=== PATIENT | male | born 1975 | race Hispanic/Latino ===

== ENCOUNTER 2018-03-18 16:19 | Emergency (ER) | payer SELFPAY ==
[2018-03-18] MEDS ORDERED: Insulin Regular 300 UNITS/3 ML VIAL ONE (17:51)
== END 2018-03-18 19:49 | disposition home or self-care (01) ==
LOC: ERS 16:19
DX: E11.65 Type 2 diabetes mellitus with hyperglycemia (principal); F17.210 Nicotine dependence, cigarettes, uncomplicated; Z71.6 Tobacco abuse counseling
CPT/HCPCS: 36416; 96360; 96372; 99406; J1815

== ENCOUNTER 2018-09-20 17:08 | Inpatient (IN) | payer OTHER, SELFPAY ==
--- NOTE | 2018-09-20 17:30 | CT ---
CT HEAD NONCONTRAST: 09/20/2018 HISTORY: Left-sided numbness and vision loss. COMPARISON: None available. FINDINGS: There is no evidence of a hemorrhage, acute infarction, mass effect, or midline shift. The ventricul ar system is normal in size, shape, and position. The visualized paranasal sinuses and mastoid air c ells are clear. The calvarial structures are intact. IMPRESSION: No acute intracranial abnormality is demonstrated. The above findings were discussed with Dr. Nava in the emergency department on 09/20/2018 at 1720 hours. CODE CR POS: [facility]
[2018-09-20 17:34] LABS: #Basophils 0.1 thou/uL (0.0-0.2); #Eosinphils 0.1 thou/uL (0.0-0.7); #Lymphocytes 2.1 thou/uL (1.20-3.40); #Monocytes 0.4 thou/uL (0.11-0.59); #Neutrophils 4.2 thou/uL (1.40-6.50); %Basophils 1.4 % (0.0-1.0); %Eosinophils 0.8 % (0.0-10.0); %Lymphocytes 30.3 % (21.0-51.0); %Monocytes 5.6 % (0.0-10.0); Hemoglobin 16.3 g/dL (14.0-18.0); Mean Corpuscular HGB CONC 34.6 g/dL (32.0-36.0); Mean Corpuscular Hemoglobin 34.2 pg (27.0-31.0); Mean Platelet Volume 7.5 fL (7.4-10.4); Platelet Count 282 thou/uL (130-400); RBC Distribution Width 11.9 % (11.5-14.5); Red Blood Cell (RBC) Count 4.77 mill/uL (4.70-6.10); White Blood Cell (WBC) Count 6.8 thou/uL (4.8-10.8)
--- NOTE | 2018-09-20 17:52 | CT ---
CT ANGIOGRAM HEAD WITH IV CONTRAST AND 3D RECONSTRUCTIONS: CT ANGIOGRAM NECK WITH IV CONTRAST AND 3D RECONSTRUCTIONS: 09/20/2018 HISTORY: Three seizure episodes. Left-sided numbness and vision loss. COMPARISON: Noncontrast CT head on 09/20/2018. FINDINGS: There is a normal arrangement of the great vessels of the aortic arch, which are patent. The left gerardo bclavian artery is partially obscured due to dense contrast within the left subclavian vein, but the visualized left subclavian artery is patent. The right subclavian artery, innominate artery, and abner ateral common carotid arteries are patent. The bilateral internal and external carotid arteries are patent. The bilateral vertebral arteries a re codominant and patent. The basilar artery and posterior cerebral arteries are patent. The bilateral middle cerebral and anterior cerebral arteries are patent. No focal stenosis or branch occlusion is appreciated. No significant atherosclerotic plaque is seen within the bilateral internal carotid arteries or invol ving the minto of Loyd or vertebrobasilar system. No aneurysm is seen within the limitations of the technique of this examination. IMPRESSION: 1. Patent bilateral internal carotid arteries by NASCET criteria. 2. Patent bilateral vertebral arteries. 3. Patent minto of Loyd and vertebrobasilar system. No focal stenosis is appreciated. The above findings were discussed with Dr. Nava in the emergency department on 09/20/2018 at 1741 hours. CODE CR POS: [facility]
[2018-09-20 18:06] LABS: PTT 29.7 SEC (22.9-36.1)
[2018-09-20 18:07] LABS: INR-International Normal Ratio 1.1; Prothrombin Time 13.9 SEC (12.0-14.7)
[2018-09-20 18:12] LABS: Acetaminophen Less than 6.0 mcg/mL (10.0-30.0); Alcohol Less than 10 mg/dL (Less than 10); Magnesium 2.2 mg/dL (1.6-2.6); Salicylate Less than 8.0 mg/dL (15.0-30.0)
[2018-09-20 18:14] LABS: ALT (SGPT) 30 U/L (8-55); AST (SGOT) 23 U/L (5-34); Albumin 3.4 g/dL (3.5-5.0); Alkaline Phosphatase 109 U/L (40-150); Anion Gap 15 mmol/L (10-20); BUN (Urea Nitrogen) 13 mg/dL (8.9-20.6); Bilirubin, Total 0.7 mg/dL (0.2-1.2); CK (CPK) 51 U/L (30-200); Calc. Creatinine Clearance 0 mL/min (70-130); Calcium 9.1 mg/dL (7.8-10.44); Carbon Dioxide 23 mmol/L (22-29); Chloride 99 mmol/L (98-107); Estimated GFR-MDRD 88; Globulin 2.9 g/dL (2.4-3.5); Glucose 313 mg/dL (70-105); Potassium 4.3 mmol/L (3.5-5.1); Protein, Total 6.3 g/dL (6.0-8.3); Sodium 133 mmol/L (136-145)
[2018-09-20 18:16] LABS: CKMB 0.9 ng/mL (0-6.6); Troponin I Less than 0.010 ng/mL (< 0.028)
[2018-09-20] MEDS ORDERED: levETIRAcetam In NaCl (Iso-Os) 1,500 MG in Premix Bag 1 BAG IVPB SCH (18:45)
[2018-09-20] MEDS ORDERED: Dextrose 50% Abboject 50 ML SYRINGE SLOW IVP PRN (19:23)
[2018-09-20] MEDS ORDERED: Dextrose 5% in Water 1,000 ML IV PRN (19:23)
[2018-09-20 19:48] LABS: Bilirubin Negative (Negative); Blood, Urine Negative (Negative); Clarity CLEAR (Clear); Glucose, Urine (Dipstick) >=1000 mg/dL (Negative); Leukocyte Negative (Negative); Nitrite Negative (Negative); Protein, Urine (Dipstick) Negative (Neg-Trace); pH, Urine 6.5 (5.0-9.0)
[2018-09-20 19:53] LABS: Specific Gravity, Urine 1.056 (1.002-1.036)
[2018-09-20 20:01] LABS: Amphetamine Detected (NotDetected); Barbiturates Screen Not Detected (NotDetected); Benzodiazepine Screen Not Detected (NotDetected); Cocaine Metabolite Screen Not Detected (NotDetected); Medtox Control Line Valid? VALID (VALID); Medtox Reader # READER 1; Methadone Not Detected (NotDetected); Methamphetamine Detected (NotDetected); Opiate Screen Not Detected (NotDetected); Oxycodone Screen Not Detected (NotDetected); Phencyclidine (PCP) Not Detected (NotDetected); THC/Cannabinoid Screen Not Detected (NotDetected); Tricyclic Screen Not Detected (NotDetected)
[2018-09-20 20:55] LABS: Troponin I Less than 0.010 ng/mL (< 0.028)
[2018-09-20 22:01] VITALS: BMI 16.3
[2018-09-20] MEDS: Sodium Chloride 0.9% 1,000 ML IV SCH (23:00)
--- NOTE | 2018-09-21 00:34 | HP ---
CHIEF COMPLAINT: Left-sided weakness and seizure. HISTORY OF PRESENT ILLNESS: This patient is a 43-year-old male. The patient has history of diabetes mellitus, which is extremely poorly controlled. He reports his blood sugars often run in the 400 range. The patient is a [facility] inmate and the guard says that they had measured over 500 prior to transporting the patient here. The patient states that last night he had some numbness in his left upper extremity, but thought it would go away, so he went to bed. This morning, he awoke and he had worsening weakness and numbness on the left side of his body. He reports that he had a sensation of his left leg being asleep. He states he could not move his leg, but does state that he was able to get up on it and walk to the cafeteria area as long as he walks slowly and hold on to something. Throughout the day today, he did have some worsening of his speech. He subsequently had a witnessed seizure at the [facility]. The guards with him was one of the witnesses and reported it lasted for about 4 minutes. The patient's eyes rolled back into his head and he had some generalized tonic clonic movements. [facility], where he had a couple of smaller seizures lasting less than a minute. The patient has no history of seizure disorder. He denied any loss of bowel or bladder control. He did not have any injury to himself or tongue biting. He was apparently postictal up until the time he got to the emergency department. Currently, he reports he still has some weakness on his one side and some slurred speech. Apparently, his speech has improved significantly since the time of his arrival according to the nurse and the guard. REVIEW OF SYSTEMS: The patient reports he has had some alterations in his vision and taste sensations. He also reports he has had no bowel movement for a couple of days. He reports some mild back pain, urinary frequency. He does have polydipsia and generalized decreased weight, and he also reports that he has had some clear type penile discharge. PAST MEDICAL HISTORY: Diabetes mellitus, history of childhood asthma. PAST SURGICAL HISTORY: None. FAMILY HISTORY: Father of cancer. His mother is still alive and healthy. SOCIAL HISTORY: The patient reports smoking 4 cigarettes per day. He does smoke some marijuana. He says he tried methamphetamine once. He typically does drink a beer a day. He is . His would be his surrogate decision maker and he is full code. ALLERGIES: NONE. MEDICATIONS: Metformin 1000 mg p.o. b.i.d. PHYSICAL EXAMINATION: VITAL SIGNS: Temperature 98.6, pulse 77, respirations 18, O2 saturation 100% on room air, and blood pressure 103/84. GENERAL APPEARANCE: Age-appropriate male, very thin, in no distress. He is lying comfortably in gurney in the emergency department. HEENT: PERRL. No OP lesions. NECK: Supple and symmetric. No lymphadenopathy, JVD, or carotid bruits. HEART: Regular rate and rhythm. No murmurs, gallops, or rubs. LUNGS: Clear to auscultation bilaterally with good chest wall expansion and air exchange. ABDOMEN: Soft, nontender, and nondistended. Positive bowel sounds. No masses. No organomegaly. EXTREMITIES: Warm and dry with no cyanosis, clubbing, or edema. NEUROLOGIC: The patient is awake, alert, oriented, appropriate, cognitively intact. He does have some slurred speech. Cranial nerves II through XII appear to be grossly intact. He has 5/5 strength on the right, both upper and lower extremities. Examining his left side, the patient is being encouraged to squeeze my hand as hard as he could. He subsequently had a bit of emotional breakdown, started crying, saying that he was not going to let this thing beat him and then managed to have fairly normal strength when giving full effort in upper and lower extremities both proximally and distally. LABORATORY DATA: White count 6.8, hemoglobin 16.3, and platelets 282. Coags normal. Sodium 133, potassium 4.3, chloride 99, CO2 of 23, BUN 13, creatinine 0.94, glucose 313, and calcium 9.1. AST 23, ALT 30. Prolactin level is 2.57. Urinalysis greater than 1000 glucose. Urine drug screen positive for methamphetamine and amphetamine. Brain CT negative. CT angio negative. IMPRESSION AND PLAN: 1. Left hemiplegia. The patient's exam is unusual and he appears to be inconsistent with his history. He initially presents with substantial weakness on the left side, but can be coaxed to give better effort and appears to have generally normal strength at those times. It is unclear whether this truly represents a deficiency or not. His initial CT was negative. We will keep him in the hospital and obtain an MRI as well as a Neurology consult. Other etiologies represent possible functional hypoglycemia versus Paul's paralysis. His symptoms appeared to start before his initial witnessed seizure, but I suppose it is possible he could have had an unwitnessed seizure of a lesser degree. It is also possibly could be having some affects of intoxication. 2. Seizure. This could be representing new onset seizure with new onset cerebrovascular accident. Prolactin level is low. He is being loaded with Keppra and again, we will consult Stroke Team and have Neurology see the patient. 3. Diabetes mellitus, very poorly controlled. We will continue with the metformin, but provide sliding scale insulin as well. 4. Positive drug screen. If the patient is positive for amphetamine and methamphetamine, it certainly could be exacerbating his risk of stroke and seizure. Job ID: [id number]
[2018-09-21 00:43] LABS: #Basophils 0.1 thou/uL (0.0-0.2); #Eosinphils 0.1 thou/uL (0.0-0.7); #Monocytes 0.5 thou/uL (0.11-0.59); %Basophils 1.8 % (0.0-1.0); %Eosinophils 1.8 % (0.0-10.0); %Lymphocytes 30.2 % (21.0-51.0); %Neutrophils 59.2 % (42.0-75.0); Hemoglobin 14.2 g/dL (14.0-18.0); Mean Corpuscular HGB CONC 34.1 g/dL (32.0-36.0); Mean Corpuscular Hemoglobin 33.8 pg (27.0-31.0); Mean Corpuscular Volume 99.1 fL (78.0-98.0); Mean Platelet Volume 6.7 fL (7.4-10.4); Platelet Count 259 thou/uL (130-400); RBC Distribution Width 11.6 % (11.5-14.5); Red Blood Cell (RBC) Count 4.21 mill/uL (4.70-6.10); White Blood Cell (WBC) Count 6.8 thou/uL (4.8-10.8)
[2018-09-21 01:02] LABS: Troponin I Less than 0.010 ng/mL (< 0.028)
[2018-09-21 01:04] LABS: Anion Gap 14 mmol/L (10-20); BUN (Urea Nitrogen) 14 mg/dL (8.9-20.6); Calc. Creatinine Clearance 73 mL/min (70-130); Calcium 8.5 mg/dL (7.8-10.44); Carbon Dioxide 23 mmol/L (22-29); Chloride 98 mmol/L (98-107); Estimated GFR-MDRD Greater than 90; Glucose 411 mg/dL (70-105); Potassium 3.9 mmol/L (3.5-5.1); Sodium 131 mmol/L (136-145)
[2018-09-21] MEDS: HumaLOG 300 UNITS/3 ML VIAL SC PRN ×4 (07:16→21:11)
[2018-09-21] MEDS ORDERED: Lorazepam 2 MG/ML VIAL SLOW IVP PRN (07:50)
[2018-09-21] MEDS ORDERED: Diazepam 5 MG TAB PO PRN (07:51)
[2018-09-21] MEDS ORDERED: Thiamine HCl 200 MG/2 ML VIAL IM SCH (08:00)
[2018-09-21] MEDS ORDERED: Diazepam 5 MG TAB PO SCH (08:00)
[2018-09-21] MEDS ORDERED: Folic Acid 1 MG TAB PO SCH (08:00)
[2018-09-21] MEDS ORDERED: Multivit, Therapeutic 1 TAB PO SCH (08:00)
[2018-09-21] MEDS: levETIRAcetam 500 MG TAB PO SCH ×2 (09:20→21:11)
[2018-09-21] MEDS: Sodium Chloride 0.9% 1,000 ML IV SCH ×2 (09:33→21:10)
--- NOTE | 2018-09-21 13:24 | PDOC.PN ---
- Subjective Encounter Start Date: 09/21/18 Encounter Start Time: 11:10 Feeling improved. Still has some tingling on left side. Speech is improved. Swallowing normally. Reports some discomfort to the left hand (along 5th metacarpal area) - Objective Resuscitation Status - Order Detail: 09/20/18 19:26 Resuscitation Status Routine Resuscitation Status: FULL: Full Resuscitation Discussed with: Patient Vital Signs & Weight: Vital Signs (12 hours) Temp Pulse Pulse Pulse Resp BP BP 09/21/18 12:18 94/65 09/21/18 11:50 97.5 F L 76 18 09/21/18 08:41 80 86 93/66 09/21/18 08:20 09/21/18 07:36 98 F 80 16 09/21/18 03:09 98.5 F 72 BP BP Pulse Ox 09/21/18 12:18 09/21/18 11:50 94/65 98 09/21/18 08:41 92/70 09/21/18 08:20 100 09/21/18 07:36 98/72 100 09/21/18 03:09 103/72 99 Weight Weight 98 lb 3 oz I&O: 09/20/18 09/21/18 09/22/18 06:59 06:59 06:59 Intake Total 574 Output Total 500 Balance 74 Result Diagrams: 09/21/18 00:18 09/21/18 00:18 Additional Labs: Accuchecks 09/20/18 09/20/18 22:57 17:16 POC Glucose 204 H 301 H Phys Exam - Physical Examination Constitutional: NAD Respiratory: no wheezing, no rales, no rhonchi, clear to auscultation bilateral Cardiovascular: RRR, no significant murmur, no rub Gastrointestinal: soft, non-tender, no distention, positive bowel sounds Musculoskeletal: no edema No TTP of the left hand. Neurological: non-focal, normal sensation, moves all 4 limbs Still very slow to give full effort. Psychiatric: normal affect, A&O x 3 Dx/Plan (1) Left hemiplegia Code(s): G81.94 - HEMIPLEGIA, UNSPECIFIED AFFECTING LEFT NONDOMINANT SIDE Status: Acute (2) Seizure Code(s): R56.9 - UNSPECIFIED CONVULSIONS Status: Acute (3) Diabetes mellitus Code(s): E11.9 - TYPE 2 DIABETES MELLITUS WITHOUT COMPLICATIONS Status: Acute (4) Methamphetamine abuse Code(s): F15.10 - OTHER STIMULANT ABUSE, UNCOMPLICATED Status: Acute (5) Alcohol abuse Code(s): F10.10 - ALCOHOL ABUSE, UNCOMPLICATED Status: Acute - Plan * Patient's reported to nurse that the patient drinks much more than he will admit to. I asked again and he maintains that he only drinks one beer per day. Was started on withdrawal regiment by jace. Will continue the thiamine and folate. * States he used meth several weeks ago, but tested positive. Changed his story and says it was a few days ago. * Exam substantially improved. Basically normal when he gives full effort. * MRI, ECHO, Neuro consult pending. * Continue Keppra. * Blood sugars poorly controlled. Increase to moderate SSI.
[2018-09-21] MEDS ORDERED: Aspirin 81 mg Enteric Coated Tablet PO SCH (13:30)
--- NOTE | 2018-09-21 14:40 | CON ---
DATE OF CONSULTATION: 09/21/2018 TYPE OF CONSULTATION: Neurology consultation. CONSULTING PHYSICIAN: Hospitalist Service. IMPRESSION: 1. Seizure of new onset. 2. Left hemibody numbness suggestive of a small vessel stroke. 3. Diabetes. 4. Methamphetamine use. PLAN: 1. MRI of the brain to confirm whether there has been an ischemic event. 2. Continue Keppra 500 mg twice a day. 3. Blood sugar control. 4. Consider further stroke workup if this MRI is positive. HISTORY OF PRESENT ILLNESS: Mr. Herrera is a 43-year-old man, who reports having history of diabetes. He was placed in shelter on Thursday. He reports that was the last day he had any alcohol use. He admits that he would use some methamphetamine last week as well. He developed some numbness on the left side of the body three days ago. He did not report it at that time. He apparently had a seizure and was brought in for evaluation. He had a CT scan of the brain and CT angio, which did not reveal any acute changes or evidence of stenosis. His laboratory studies were notable for elevated glucoses in the 300 to 400 range. His drug screen was positive for methamphetamine. He has not had any further seizures. He reportedly had at least three events while he was in shelter. He denies any past history of seizure activity. PAST MEDICAL HISTORY: Diabetes. ALLERGIES: NONE. SOCIAL HISTORY: Positive for methamphetamine use and alcohol use. FAMILY HISTORY: Noncontributory. MEDICATION LIST: Metformin. REVIEW OF SYSTEMS: No complaint of headache, nausea, vomiting, vertigo, chest pain, shortness of breath. Positive for joint pain in his hands. PHYSICAL EXAMINATION: GENERAL: He is a thin, middle-aged man, in no acute distress. VITAL SIGNS: Blood pressure 92/70, pulse 86, and respirations 16. He is afebrile. HEENT: Pupils are equal and reactive. Conjunctiva clear. Oropharynx clear. NECK: Supple. No lymphadenopathy noted. EXTREMITIES: There are degenerative joint changes in the DIP and PIP joints of both hands. No cyanosis is noted. NEUROLOGIC: He was alert and cooperative. His speech is fluent and clear. Cranial nerve exam was only notable for subjective decreased sensation to touch on the left side of the face. Motor exam showed symmetric customer [employer] teammate strength without fix or drift. Cerebellar testing shows normal [id number] and rapid alternating movements. Sensation was subjectively decreased in the left arm and leg. Plantar responses were downgoing bilaterally. Gait was not tested. No abnormal movements were seen. SUMMARY: This is a 43-year-old man with poorly controlled diabetes and illicit drug use as well as alcohol use, who presents with left hemibody numbness and an acute seizure. Agree with continuing the Keppra and further stroke workup. Job ID: [id number]
[2018-09-21] MEDS ORDERED: Atorvastatin Calcium 40 MG TAB PO SCH (21:00)
[2018-09-22] MEDS ORDERED: Diazepam 5 MG TAB PO PRN (04:00)
[2018-09-22 05:31] LABS: Cardiac Risk 2.1 (Less than 4.5)
[2018-09-22 06:34] LABS: Glucose 382 mg/dL (70-105)
[2018-09-22] MEDS: HumaLOG 300 UNITS/3 ML VIAL SC PRN (06:40)
[2018-09-22] MEDS ORDERED: HumaLOG 300 UNITS/3 ML VIAL SC PRN (08:23)
[2018-09-22] MEDS ORDERED: Aspirin 81 mg Enteric Coated Tablet PO SCH (09:00)
[2018-09-22] MEDS ORDERED: Magnesium Oxide 400 MG TAB PO SCH (09:00)
[2018-09-22] MEDS ORDERED: Multivitamin W/ Minerals 1 TAB PO SCH (09:00)
[2018-09-22] MEDS ORDERED: Enoxaparin Sodium 40 MG/0.4 ML SYRINGE SC SCH (09:00)
[2018-09-22] MEDS ORDERED: Folic Acid 1 MG TAB PO SCH (09:00)
[2018-09-22] MEDS: levETIRAcetam 500 MG TAB PO SCH (09:45)
[2018-09-22] MEDS: Sodium Chloride 0.9% 1,000 ML IV SCH (09:47)
--- NOTE | 2018-09-22 10:53 | MRI ---
MRI BRAIN WITHOUT CONTRAST: Date: 09/22/18 HISTORY: Cerebrovascular accident. COMPARISON: CT brain dated 09/20/18. FINDINGS: On the diffusion weighted imaging sequence, there are no foci of diffusion restricted to suggest acut e infarction. There is some artifact along the anterior mulu. No abnormal low signal on the ADC map. On the susceptibility weighted imaging sequence, there are no abnormal foci of hemorrhage. The curyung of Loyd flow-voids are maintained. No midline shift. No mass effect. Marrow signal is normal on the sagittal and T1 image. Corpus callosum is normal. IMPRESSION: No acute intracranial abnormality. POS: [facility]
[2018-09-22 15:55] VITALS: BP 90/65; TEMP 98.7
--- NOTE | 2018-09-23 12:02 | DIS ---
DATE OF ADMISSION: 09/20/2018 DATE OF DISCHARGE: 09/22/2018 DISCHARGE DIAGNOSES: 1. Left hemiplegia, resolved. 2. Left-sided paresthesias, resolved. 3. Seizure. 4. Diabetes mellitus. 5. Methamphetamine abuse. 6. Possible alcohol abuse. HISTORY OF PRESENT ILLNESS: This patient is a 43-year-old male, who was a [facility] halfway inmate, when he presented to the emergency department. The patient reported that he had some tingling in his left upper extremity the evening before, and on the day of admission, had experienced weakness and numbness and tingling over the left side of his body as well as some speech difficulties. The patient was apparently witnessed to have a grand mal seizure with tonic-clonic activities with no loss of bowel or bladder function. No self harm. The patient was taken to the [facility] where he apparently had a couple more small seizures and then he was transported to the hospital. In the hospital, the patient continued to have some left-sided weakness, although his speech was clearing. His head CT was negative. His lab workup was primarily notable for positive drug screen for methamphetamines. The patient reported that he only drink 1 or 2 beers per day. During the initial exam, the patient was able to muster fairly normal strength when he was giving full effort on his left side. His speech apparently improved dramatically during his time in the emergency department. HOSPITAL COURSE: The patient was admitted. He was loaded with Keppra and continued on Keppra dosing. He had an MRI of the brain and echocardiogram, both of which were essentially normal. He had a consultation by Neurology as well. He had Physical Therapy get the patient up and walk him. He also was noted to have severely out of control blood sugars and his treatment was changed to sliding scale insulin regimen until we did get some control over his blood sugars. Because the patient was non-resourced, he was referred to the [facility] program where he can get some help with his medications and supplies. Once the patient was essentially back to his normal regimen and his workup had been essentially unremarkable, he was felt to be stable for discharge to home. Of note, the patient's did talk to the nurses and indicate that the patient drank much more than he admitted to, although the patient himself stuck to the 1 to 2 beers per day. The patient's was concerned that the patient might have had some type of alcohol withdrawal seizure when he was in the [facility] halfway, although there was nothing to ultimately substantiate that. PHYSICAL EXAMINATION: VITAL SIGNS: On the day of discharge, temperature is 98.7, pulse 81, BP 99/70, respirations 16, O2 saturation 97% on room air. GENERAL: The patient was awake, alert, oriented, pleasant, and cooperative. His speech appeared to be back to his baseline. HEART: Regular rate and rhythm without murmurs. LUNGS: Clear bilaterally. ABDOMEN: Soft, nontender, and nondistended. EXTREMITIES: Warm and dry. NEUROLOGICAL: The patient appeared to have 5/5 strength. DISPOSITION: The patient is discharged to home. DIET: He is to be on a diabetic diet. ACTIVITIES: His activity is as tolerated. MEDICATIONS: He will be on, 1. Aspirin 81 mg daily. 2. Atorvastatin 40 mg at bedtime. 3. Insulin 70/30, 30 units in the a.m. and 15 units in p.m. 4. Keppra 500 mg b.i.d. 5. Metformin 1000 mg b.i.d. FOLLOWUP: He is to establish with a PCP and follow up with the hospital should he have any problems prior to that time. Job ID: [id number]
== END 2018-09-22 17:29 | disposition home or self-care (01) | DRG 101 ==
LOC: ERS 17:08 → EDBD 17:08 → 2SE 18:49
PROVIDERS: ADMIT Internal Medicine; ATTEND Internal Medicine
DX: R56.9 Unspecified convulsions (principal); G81.94 Hemiplegia, unspecified affecting left nondominant side; E11.65 Type 2 diabetes mellitus with hyperglycemia; R20.2 Paresthesia of skin; F15.10 Other stimulant abuse, uncomplicated; F10.10 Alcohol abuse, uncomplicated; F17.210 Nicotine dependence, cigarettes, uncomplicated; Z79.84 Long term (current) use of oral hypoglycemic drugs
CPT/HCPCS: 36415; 36416; 70450; 70496; 70498; 70551; 80048; 80053; 80061; 80306; 80307; 81003; 82550; 82553; 82947; 83735; 84146; 84484; 85025; 85610; 85730; 86850; 86900; 86901; 90471; 90686; 93005; 93306; 94760; 96365; G0008; J1650; J1953